=== PATIENT | male | born 1965 | race Asian ===

== ENCOUNTER 2018-03-30 16:12 | Outpatient (CLI) | payer OTHER ==
--- NOTE | 2018-03-31 13:09 | MRI Report ---
EXAM: RIGHT ANKLE/HINDFOOT MRI WITHOUT CONTRAST EXAM DATE: 03/30/2018 05:23 PM. CLINICAL HISTORY: Chronic right ankle pain. Previous severe sprain injuries. COMPARISON: None. TECHNIQUE: Multiplanar, multisequence T1-weighted and fluid-sensitive sequences of the ankle/hindfoot without contrast. Other: None. FINDINGS: Bones and Articular Cartilage: Marginal osteophytes at the tibial plafond and talar dome. Enthesophyt es at the lateral malleolus. Small well-corticated bone fragment adjacent to the distal end of the la teral malleolus which may represent an old ununited fracture or accessory ossicle. Mild marrow edema at the distal aspect of the lateral malleolus. Small subcortical cysts at the anterolateral aspect of the tibial plafond. Minimal marrow edema at the anterior aspect of the medial malleolus. Grade 2 cho ndromalacia and small focus of mild subcortical marrow edema at the anterior aspect of the tibial luz maria fond. Mild marrow edema and small subcortical cysts at the anteromedial aspect of the talus. Small pl keren calcaneal enthesophyte. Small osteophytes at the dorsal aspect of the talonavicular joint. Smal l osteophytes at the inferomedial aspect of the talus. Small bone fragment adjacent to the posterior aspect of the medial malleolus which may represent an old ununited fracture or accessory ossicle. Ent hesophytes at the medial malleolus. Ligaments: Partial ossification of the distal tibiofibular interosseous ligament from previous old in [facility]. The anterior tibiofibular ligament is intact, but thickened from previous old injury. The poste rior tibiofibular ligament is intact, but thickened from previous old injury. Bony hypertrophic briceño es at the tibial attachment sites of the anterior and posterior tibiofibular ligaments and at the fib ular attachment site of the anterior tibiofibular ligament from previous old injury. The anterior urbano ofibular ligament is thin, but intact suggestive of old injury. The posterior talofibular ligament is intact. The calcaneofibular ligament is intact. Bony hypertrophic changes at the fibular and talar a ttachment sites of the talofibular ligaments. The deep and superficial deltoid ligaments are intact. There are bony hypertrophic changes adjacent to the deep deltoid ligament complex which is likely due to previous old injury. The spring ligament complex is intact. Anterior Tendons: The tibialis anterior, extensor hallucis longus, and extensor digitorum longus tend ons are unremarkable. Medial Tendons: Mild posterior tibialis tenosynovitis. The flexor hallucis longus and flexor digitoru m longus tendons are unremarkable. Lateral Tendons: The peroneus brevis and longus are unremarkable. Achilles Tendon: Focal tendinosis and tiny low-grade partial tear at the distal end of the Achilles t endon. Musculature: No edema or fatty atrophy. Other: Small tibiotalar joint effusion. There are several, subcentimeter loose bodies within the ante romedial, anterior median, and anterolateral aspects of the tibiotalar joint. One of the larger loose bodies is at the anterolateral gutter of the tibiotalar joint and measures approximately 6 x 4 x 5 m m. The contents of the sinus tarsi and tarsal tunnel are unremarkable. No plantar fasciitis. The subc utaneous tissues are unremarkable. IMPRESSION: 1. Multiple findings related to previous chronic injury of the ankle. 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 Partial ossification of the distal tibiofibular interosseous ligament f rom previous old injury. Thickened tibiofibular ligaments from previous old injury. Thin, but intact anterior talofibular ligament from previous old injury. 2. Mild posterior tibialis tenosynovitis. 3. Focal tendinosis and a tiny low-grade partial tear at the distal end of the Achilles tendon. 4. Small tibiotalar joint effusion. [facility] MUSCULOSKELETAL RADIOLOGY SECTION Referring Provider Line: [phone] SITE ID: [id number]
== END 2018-03-30 16:13 | disposition home or self-care (01) ==
LOC: DI 16:12
PROVIDERS: ATTEND Family Medicine
DX: M19.071 Primary osteoarthritis, right ankle and foot (principal); M24.071 Loose body in right ankle; M65.9 Synovitis and tenosynovitis, unspecified; M65.871 Other synovitis and tenosynovitis, right ankle and foot; S86.011A Strain of right Achilles tendon, initial encounter; M25.471 Effusion, right ankle

== ENCOUNTER 2019-01-25 07:37 | Emergency (ER) | payer OTHER ==
--- NOTE | 2019-01-25 07:49 | ED Physician Documentation ---
PD HPI LOWER EXT INJURY - Stated complaint Stated Complaint: R ANKLE PX - History obtained from History obtained from: Patient - History of Present Illness PD HPI LOW EXT INJURY LOCATION: Right, Ankle Type of injury: Other (no known new injury) Where injury occurred: Home Timing - onset: How many days ago (2) Timing - duration: Days (2) Timing - details: Gradual onset, Still present Improved by: Rest, Immobilization Worsened by: Moving, Palpating Associated symptoms: Swelling. 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 He has been offered a surgical fix by orthopedist in [place] and he has not pursued this as he had resolution of his symptoms after about 2 weeks. He does have a history of gout and he indicates that usually with gout he has a lot of swelling and redness and is not experiencing that with this. He also indicates that the pain is not exquisite. If he is not bearing weight and is just sitting his pain is manage able. Review of Systems Constitutional: denies: Fever Eyes: denies: Decreased vision Ears: denies: Ear pain Nose: denies: Rhinorrhea / runny nose, Congestion Throat: denies: Sore throat Cardiac: denies: Chest pain / pressure, Palpitations Respiratory: denies: Dyspnea, Cough GI: denies: Nausea, Vomiting, Constipation, Diarrhea : denies: Dysuria, Frequency Skin: denies: Rash Musculoskeletal: reports: Extremity pain, Joint pain, Pain with weight bearing. denies: Neck pain, Back pain Neurologic: denies: Generalized weakness, Focal weakness, Numbness PD PAST MEDICAL HISTORY - Present Medications Home Medications: Ambulatory Orders Medication Instructions Recorded Confirmed Allopurinol 0 mg 01/25/19 Colchicine [Colcrys] 0 mg 01/25/19 Hydrocodone/Acetaminophen 1 - 2 each PO Q6H PRN #14 tablet 01/25/19 [Hydrocodon-Acetaminophen 5-325] - Allergies Allergies/Adverse Reactions: Allergies Allergy/AdvReac Type Severity Reaction Status Date / Time No Known Drug Allergies Allergy Verified 01/25/19 07:54 PD ED PE NORMAL - Vitals Vital signs reviewed: Yes (hypertensive) - General General: Alert and oriented X 3, No acute distress, Well developed/nourished - HEENT HEENT: Atraumatic, PERRL, EOMI - Respiratory Respiratory: No respiratory distress - Derm Derm: Normal color, Warm and dry, No rash - Extremities Extremities: No deformity, No edema, Other (There is point tenderness to the medial ankle over the tibio-talar ligament. There is not appreciable swelling. ) - Neuro Neuro: Alert and oriented X 3, assessment coordinator 2-12 intact, No motor deficit, No sensory deficit, Normal speech Eye Opening: Spontaneous Motor: Obeys Commands Verbal: Oriented GCS Score: 15 - Psych Psych: Normal mood, Normal affect Results - Vitals Vitals: Vital Signs - 24 hr 01/25/19 07:48 Temperature 36.1 C L Heart Rate 88 Respiratory 16 Rate Blood Pressure 157/95 H O2 Saturation 100 Oxygen O2 Source Room air PD MEDICAL DECISION MAKING - ED course Complexity details: considered differential, d/w patient ED course: 53-year-old male with chronic ankle pain has a flare of his ankle pain and he is administered dexamethasone 10 mg orally we will place him on some pain medication and he will follow-up with orthopedics in [place]. Departure - Departure Disposition: 01 Home, Self Care Clinical Impression: Ankle pain, chronic Qualifiers: Laterality: right Qualified Code(s): M25.571 - Pain in right ankle and joints of right foot; G89.29 - Other chronic pain Condition: Stable Instructions: ED Degenerative Joint Disease Follow-Up: LIZETTE BARBOSA DO [Primary Care Provider] - Prescriptions: Hydrocodone/Acetaminophen [Hydrocodon-Acetaminophen 5-325] 1 - 2 each PO Q6H PRN #14 tablet PRN Reason: pain
[2019-01-25 07:54] VITALS: BP 157/95
[2019-01-25] MEDS ORDERED: DEXAMETHASONE 10 MG/ML VIAL PO STA (07:59)
[2019-01-25] MEDS ORDERED: CHERRY SYRUP 10 ML UDC PO ONE (08:11)
== END 2019-01-25 08:15 | disposition home or self-care (01) ==
LOC: ED 07:37
DX: M25.571 Pain in right ankle and joints of right foot (principal); G89.29 Other chronic pain; Z87.828 Personal history of other (healed) physical injury and trauma
CPT/HCPCS: 99283; A9270

== ENCOUNTER 2021-04-15 08:16 | Emergency (ER) | payer OTHER ==
[2021-04-15 08:39] VITALS: BP 118/85
[2021-04-15] MEDS ORDERED: BUFFERED LIDOCAINE 10 ML SYRINGE IU ONE (10:06)
--- NOTE | 2021-04-15 10:06 | XRAY Report ---
PROCEDURE: Knee 3 View LT INDICATIONS: pain, swelling TECHNIQUE: 3 views of the left knee(s) were acquired. COMPARISON: None. FINDINGS: Bones: No fractures or dislocations. No suspicious bony lesions. Lateral patellar subluxation is p resent. Soft tissues: Moderate joint effusion. No suspicious soft tissue calcifications. IMPRESSION: Moderate effusion. No visualized acute fracture or dislocation. However, occult injury c annot be excluded. Recommend short interval imaging follow-up in 7-10 days as clinically indicated fo r additional evaluation. Reviewed by: Lucy Castro MD on 04/15/2021 10:04 AM PDT Approved by: Lucy Castro MD on 04/15/2021 10:04 AM PDT Station ID: [id number]
--- NOTE | 2021-04-15 10:07 | Ultrasound Report ---
PROCEDURE: Duplex Ext Veins Left INDICATIONS: pain/swelling TECHNIQUE: Real-time imaging, as well as color and pulse Doppler interrogation, were performed of the lower extr emity deep veins from the inguinal ligament to the popliteal fossa. COMPARISON: None. FINDINGS: The deep veins are normally compressible, and free of intraluminal thrombus. Color and pu lse Doppler demonstrate normal phasic intraluminal flow. There is normal augmentation response to di stal compression maneuver. The effusion is noted. IMPRESSION: No deep venous thrombosis. Reviewed by: Lucy Castro MD on 04/15/2021 10:06 AM PDT Approved by: Lucy Castro MD on 04/15/2021 10:06 AM PDT Station ID: [id number]
[2021-04-15] MEDS ORDERED: predniSONE 20 MG TABLET PO STA (10:08)
--- NOTE | 2021-04-15 10:09 | ED Physician Documentation ---
History of Present Illness - Stated complaint Stated Complaint: L LEG SWELLING/PX - Chief complaint Chief Complaint: Ext Problem - History obtained from History obtained from: Patient - Additonal information Additional information: Patient comes emergency department chief complaint of left knee swelling spontaneously. He states he has not had any new injury to the knee, though he has a lot of history of wear and tear and some injuries in the past while in the . He does note that he did some leg workouts with body weight several days ago. Patient denies any swelling in his lower leg, distal to the knee. He states the main discomfort is from the degree of swelling, though he does have some pain. No fevers or chills. No redness. No other complaints at this time. Review of Systems Ten Systems: 10 systems reviewed and negative Constitutional: reports: Reviewed and negative Eyes: reports: Reviewed and negative Ears: reports: Reviewed and negative Nose: reports: Reviewed and negative Throat: reports: Reviewed and negative Cardiac: reports: Reviewed and negative Respiratory: reports: Reviewed and negative GI: reports: Reviewed and negative : reports: Reviewed and negative Skin: reports: Reviewed and negative Musculoskeletal: reports: Joint pain, Joint swelling, Pain with weight bearing Neurologic: reports: Reviewed and negative Psychiatric: reports: Reviewed and negative Endocrine: reports: Reviewed and negative Immunocompromised: reports: Reviewed and negative PD PAST MEDICAL HISTORY - Past Medical History Musculoskeletal: Gout - Past Surgical History Past Surgical History: No - Present Medications Home Medications: Ambulatory Orders Medication Instructions Recorded Confirmed Colchicine [Colcrys] 0 mg 01/25/19 Hydrocodone/Acetaminophen 1 - 2 each PO Q6H PRN #14 tablet 01/25/19 [Hydrocodon-Acetaminophen 5-325] allopurinoL [Allopurinol] 0 mg 01/25/19 predniSONE [Deltasone] 60 mg PO DAILY 5 Days #15 tablet 04/15/21 - Allergies Allergies/Adverse Reactions: Allergies Allergy/AdvReac Type Severity Reaction Status Date / Time No Known Drug Allergies Allergy Verified 04/15/21 08:36 - Social History Does the pt smoke?: No Smoking Status: Never smoker Does the pt have substance abuse?: No PD ED PE NORMAL - Vitals Vital signs reviewed: Yes - General General: Alert and oriented X 3, No acute distress, Well developed/nourished - HEENT HEENT: Atraumatic, PERRL, EOMI, Moist mucous membranes - Neck Neck: Supple, no meningeal sign - Cardiac Cardiac: Strong equal pulses - Respiratory Respiratory: No respiratory distress - Derm Derm: Normal color, Warm and dry, No rash - Extremities Extremities: No deformity, Other (Large effusion of left knee, primarily superior.) - Neuro Neuro: Alert and oriented X 3 - Psych Psych: Normal mood, Normal affect Results - Vitals Vitals: Vital Signs - 24 hr 04/15/21 08:36 Temperature 36 C L Heart Rate 62 Respiratory 18 Rate Blood Pressure 118/85 H O2 Saturation 97 Oxygen O2 Source Room air - Labs Labs: Laboratory Tests 04/15/21 10:55 Fluid Crystals MONOSODIUM URATE Procedures - Arthrocentesis Joint: Knee Preparation: Consent obtained, Sterile prep and drape Anesthesia: Lidocaine 1% Fluid: Cloudy, Sent for crystals, Sent for culture, Fluid obtained - cc (50), Sent for gram stain. No: Purulent Aftercare: Dressing applied, No complications, Patient tolerated well PD MEDICAL DECISION MAKING - ED course Complexity details: reviewed results, re-evaluated patient, considered differential, d/w patient ED course: Patient was given a dose of prednisone. Ultrasound of the leg and knee x-ray were both negative. Knee aspiration was performed from the superior lateral aspect and over 50 cc of slightly cloudy, yellow fluid were obtained. Fluid was somewhat viscous. Did not appear purulent. Patient had improvement in his pain level and improved range of motion after the aspiration. Fluid was sent for evaluation. We have discussed activity as tolerated and signs of infection which should prompt immediate return to the emergency department. Edit: After pt's departure, fluid was found positive for monosodium urate, indicating gout. Pt will be notified. Departure - Departure Disposition: 01 Home, Self Care Clinical Impression: Knee effusion, left Gout Qualifiers: Gout site: knee Gout etiology: unspecified cause Chronicity: acute Laterality: left Qualified Code(s): M10.9 - Gout, unspecified Condition: Stable Instructions: ED Effusion Knee Prescriptions: predniSONE [Deltasone] 60 mg PO DAILY 5 Days #15 tablet Comments: Your knee joint has been sterilely aspirated today, and over 50 cc of slightly cloudy yellowish fluid has been obtained. This will be tested for infection and gout, though it does not appear that you have any infection at this time. If your knee becomes red and you are unable to bend it at all and it is excruciatingly painful, then you need to have it reevaluated immediately. Otherwise, you should discuss with your doctor whether you should have a new MRI for further evaluation if you continue to have problems with the knee. Discharge Date/Time: 04/15/21 11:21
== END 2021-04-15 11:21 | disposition home or self-care (01) ==
LOC: ED 08:16
DX: M25.462 Effusion, left knee (principal); M10.9 Gout, unspecified
CPT/HCPCS: 20610; 73562; 87070; 87205; 89060; 93971; 99283; 99284; J7512

== ENCOUNTER 2023-11-15 14:30 | Outpatient (CLI) | payer OTHER ==
--- NOTE | 2023-11-15 16:55 | XRAY Report ---
PROCEDURE: Shoulder 2+V LT INDICATIONS: LEFT SHOULDER PAIN TECHNIQUE: 3 views of the shoulder were acquired. COMPARISON: None. FINDINGS: Bones: No acute fractures or dislocations. No suspicious bony lesions. Visualized ribs appear inta ct. Mild degenerative changes of the acromial clavicular joint. Humeral joint space is maintained. Soft tissues: No suspicious soft tissue calcifications. The visualized lungs are within normal limi ts. IMPRESSION: No acute osseous abnormality. If symptoms persist or there is continued clinical concern, further arron luation with MRI may be helpful. Reviewed by: Adelfo Khan MD on 11/15/2023 4:53 PM PST Approved by: Adelfo Khan MD on 11/15/2023 4:53 PM PST Station ID: [id number]
== END 2023-11-15 14:45 | disposition home or self-care (01) ==
LOC: DI.N 14:30
PROVIDERS: ATTEND Nurse Practitioner
DX: M25.512 Pain in left shoulder (principal)